=== PATIENT | male | born 1950 | race African-American/Black ===

== ENCOUNTER 2016-12-05 23:20 | Inpatient (IN) | payer MEDICARE, OTHER ==
--- NOTE | ~2016-12-05 | CT24 ---
[facility] A Service of [facility] & [facility] RADIOLOGY TEXT RESULTS PATIENT: Shoaib PERRY LOCATION: [facility] 469-01 : 51 UNIT #: [id number] AGE: [address]: Jakob Murphy MD SEX: M ORDER DR: [id number] [facility] [address] [place], [place] [address] [id number] I MR#: [id number] Acc #: [id number] NAME: SHOAIB PERRY : 1950 SEX: M STUDY DATE/TIME: 12/05/2016 23:45 [facility] RO[facility] 28933 STUDY DESCRIPTION: CT Angio Neck Stroke Attending Physician: Jakob Murphy M.D. Ordering Physician: Joe Galvez M.D. Primary Care Physician: Primary Care Physician No MEDICAL IMAGING REPORT This report is preliminary unless electronic signature is present EXAM CT scan of the head and neck with angiographic reconstructions INDICATION Left eye deviation with weakness and confusion. Unable to answer questions. The patient has slurred speech. The findings happened tonight. TECHNIQUE The patient was given 100 mL of Isovue 370 and spiral imaging was performed through the head and neck. 3-D reconstructions of the arterial structures were generated. NASCET criteria was utilized. This CT examination was performed with one or more of the following radiation dose reduction techniques: automatic exposure control, adjustment of mA and/or kV according to patient size, and iterative reconstruction. FINDINGS The lung apices are clear. The thyroid gland, submandibular glands and parotid glands are normal in appearance. There are no neck masses or adenopathy. The ventricles and subarachnoid spaces are normal. VASCULAR FINDINGS: The aortic arch is normal in size. The great vessels are all patent. The vertebral arteries both arise from the subclavian arteries and they unite to form the basilar artery. The right 1 is dominant. The right common carotid artery, carotid bifurcation and internal carotid artery are normal in appearance. The left common carotid artery, carotid bifurcation and internal carotid artery are normal in appearance. Both posterior cerebral arteries arise from the anterior circulation. The middle and anterior cerebral arteries are normal in appearance. The basilar artery terminates as the superior cerebellar artery. No aneurysms are identified. IMPRESSION Both posterior cerebral arteries arise from the anterior circulation. [facility] A Service of [facility] & [facility] RADIOLOGY TEXT RESULTS PATIENT: Shoaib PERRY LOCATION: [facility] 469-01 : 51 UNIT #: [id number] AGE: [address]: Jakob Murphy MD SEX: M ORDER DR: There are no aneurysms identified. No stenoses or blockages are noted. The study is otherwise normal. Dictated by... Abdifatah Warren M.D. THIS IS AN ELECTRONICALLY VERIFIED REPORT Abdifatah Warren M.D. at 12/06/2016 1:30 PM KENIA/be TD: 12/06/2016 08:06 JOB #: [id number] MEDICAL IMAGING REPORT Page 1 of 1 COPY
--- NOTE | ~2016-12-05 | CO ---
Unit #: [id number] #: [id number] Patient: Shoaib PERRY [id number] [address] [address] [id number] I MR#: [id number] NAME: SHOAIB PERRY ROOM: 469 Age: 66 Sex: M Admission Date: 12/06/2016 : 1950 Attending Physician: Valerie Rodriguez M.D. Consultation Date: 12/07/2016 CONSULTATION REPORT REVISED/ADDENDED REPORT ADDITIONAL ATTENDING PHYSICIAN Dr. Jakob Murphy. REASON FOR CONSULTATION Liver disease in a patient with hepatic encephalopathy. HISTORY OF PRESENT ILLNESS Mr. Perry is a 66-year-old gentleman, who although awake seems to be lethargic and somewhat confused. He is admitted because of mental confusion due to hepatic encephalopathy. The patient has longstanding history of hepatitis C and alcohol related cirrhosis of liver, and normally gets his care at [facility]. According to his daughter, most of the history was obtained from the chart. The patient apparently became confused and combative and thus was brought to the hospital. He has had similar history in the past. His admission ammonia level was 157 and he also had metabolic acidosis. There is no history of any overt GI bleed in the form of hematemesis, melena, or hematochezia. There is also no documentation of any increasing constipation. It is not clear whether the patient is compliant with his lactulose therapy. PAST MEDICAL HISTORY Significant for history of cirrhosis as a result of alcohol and hepatitis C, also history of intravenous drug use in the past, history of gastroesophageal reflux, and history of COPD. PAST SURGICAL HISTORY He has no previous surgeries. MEDICATIONS At home included pantoprazole, Aldactone, Corgard, lactulose, Lasix, and Flovent. ALLERGIES He has no known medication allergies. SOCIAL HISTORY He resides at home, lives with his daughter. It is not clear whether he is currently smoking or drinking. FAMILY HISTORY Unit #: [id number] #: [id number] Patient: Sohaib PERRY None available. REVIEW OF SYSTEMS Detailed review of organ systems is not available due to the patient's mental status. PHYSICAL EXAMINATION GENERAL: He appears awake and responds to verbal commands, but is quite lethargic. VITAL SIGNS: His pulse is 79 per minute and regular, respiratory rate is 16, blood pressure is 162/84. His temperature is 98.5. He weighs 136 pounds and we do not have any baseline weight to compare with. HEENT: He has mild pallor. There being no icterus, lymphadenopathy, or peripheral edema. CARDIOVASCULAR: Reveals normal heart sounds. No murmurs on auscultation. LUNGS: Reveal normal breath sounds. Good air entry. ABDOMEN: Soft and nontender. Liver and spleen are not palpable. Bowel sounds are normal. DIAGNOSTIC STUDIES LABORATORY RESULTS: Shows an INR of 1.3 JOB [id number] ADDENDUM DIAGNOSTIC STUDIES LABORATORY RESULTS: The patient's INR is 1.3. Platelet count is 74. BUN and creatinine are 24 and 1.5. His ammonia level is 150 yesterday and 170 today. The hemoglobin is 9.7, we do not have any baseline. The patient has metabolic acidosis with a CO2 of 19. Albumin is 2.4. CLINICAL IMPRESSION The patient with cirrhosis as a result of ethanol abuse and chronic hepatitis C, presenting with now hepatic encephalopathy acute versus chronic kidney injury, metabolic acidosis, malnutrition, thrombocytopenia all consequence of liver disease. A management plan includes aggressive treatment of hepatic encephalopathy with lactulose and Xifaxan, which has already been started and index endoscopy to look for evidence of esophageal varices or portal hypertensive gastropathy in the upper gastrointestinal tract. Thank you very much for asking me to see this pleasant gentleman. I appreciate the consult. Dictated by... Cayden Del Toro/danny TD: 12/07/2016 17:17 JOB #: [id number] [facility] Unit #: [id number] #: [id number] Patient: Shoaib PRERY CONSULTATION REPORT Page 1 of 1 X Tolu Lloyd MD CONSULTATION REPORT
--- NOTE | ~2016-12-05 | DS ---
Unit #: [id number] #: [id number] Patient: SHOAIB PERRY [id number] [address] [address] [id number] I MR#: [id number] NAME: SHOAIB PERRY ROOM: 469 Age: 66 Sex: M Admission Date: 12/06/2016 : 1950 Discharge Date: 12/09/2016 Attending Physician: Valerie Rodriguez M.D. Primary Care Physician: No Primary Care Physician DISCHARGE SUMMARY REASON FOR ADMISSION Mental status change, family unable to care for patient at home, fecal incontinence. HISTORY OF PRESENT ILLNESS The patient is a 66-year-old -Omani male with history of end-stage cirrhosis, seen and evaluated in the emergency room secondary to increased confusional episodes as well as combative behavior at home. He was evaluated. Initially, he had profound mental status changes. He was alert and oriented times zero. It was noted his creatinine was 1.8. His ammonia level was 157. His potassium was 5.4 and thus he was admitted for the same. Through hospital course, consultation was placed to Dr. Lloyd of gastroenterology services. Patient underwent upper GI endoscopy to evaluate for possible varices of the esophagus secondary to his prior history of cirrhosis. This did reveal gastritis changes but no acute varices were noted. Patient's creatinine at time of discharge today is 1.5 and likely his baseline is close to 1.5 to 1.8. He also carries chronic pancytopenia, likely secondary to his cirrhosis with a baseline hemoglobin of approximately 8.9. Baseline platelets between 60,000 to 80,000. His home medications were continued and do remain the same at time of discharge with the exception of Xifaxan which was added. Overall, his prognosis mcc is guarded. He will require rehab with possible transition to long-term care. FINAL DISCHARGE DIAGNOSES 1. Mental status change, likely secondary to hepatic encephalopathy. 2. Cirrhosis, evaluated as an outpatient by transplant team x2, not a transplant candidate. 3. Alcohol abuse history. 4. Prior and numerous hospital admissions secondary to recurrent ascites. 5. Xfzgtlta-uo-somkrs malnutrition. 6. Gnoximzq-no-bdjhyi protein malnutrition. 7. Chronic obstructive pulmonary disease. 8. Gastroesophageal reflux disease. 9. Hepatitis C. 10. Remote history of IV drug abuse. 11. Fecal incontinence. 12. Anxiety/behavioral issues, none observed here at [facility]. [place] #: [id number] #: [id number] [facility] DISCHARGE MEDICATIONS 1. Lactulose 20 g p.o. q.6 hours. 2. Flonase one to two squirts each nostril daily. 3. Xifaxan 550 mg p.o. b.i.d. 4. Nadolol 40 mg p.o. nightly. 5. Lasix 20 mg p.o. daily. 6. Aldactone 50 mg p.o. daily. 7. Protonix 40 mg p.o. daily. DISCHARGE CONDITION Stable. DISCHARGE DISPOSITION Rehab as recommended by PT and OT services. Dictated by... Cayden Huitron/cindy TD: 12/09/2016 12:55 JOB #: [id number] DISCHARGE SUMMARY Page 1 of 1 X Valerie Rodriguez MD X DISCHARGE SUMMARY
--- NOTE | ~2016-12-05 | OR ---
Unit #: [id number] #: [id number] Patient: Shoaib PERRY [id number] [facility]. [place], [place] [address] [id number] I MR#: [id number] NAME: SHOAIB PERRY ROOM: 469 Date of Procedure: 12/07/2016 Admission Date: 12/06/2016 Surgeon: Tolu Lloyd M.D. : 1950 Attending Physician: Valerie Rodriguez M.D. OPERATIVE REPORT JOB NOTE: CC: DR. JAKOB PRINCE. ADDITIONAL ATTENDING PHYSICIAN Dr. Jakob Prince. PREOPERATIVE DIAGNOSIS Hepatic encephalopathy in a patient with cirrhosis of liver. PROCEDURE PERFORMED Upper gastrointestinal endoscopy. POSTOPERATIVE DIAGNOSES 1. The patient had mild early straight esophageal varices in the mid esophagus, there being no stigmata of recent bleed. 2. Moderate amount of solid food residue retained in the stomach. 3. Rest of the examination up to third part of duodenum was normal. There were no changes of portal hypertensive gastropathy. RECOMMENDATIONS 1. The patient will be started on high-calorie high fat, high carb diet. Continue current dose of lactulose and make sure the patient is given the amount p.o. under supervision of the nurse to ensure that is compliant. 2. Repeat CBC, CMP, and ammonia level in the a.m. SEDATION USED Procedural sedation, a total of 3 mg of versed was used throughout the procedure. DESCRIPTION OF PROCEDURE Following detailed explanation of potential risks and complications of an upper endoscopy, namely perforation, bleeding, and complication related to sedation, the patient was brought to GI lab and laid in the left lateral decubitus position. Lubricated tip of the Olympus video upper endoscope was passed through the bite block into the proximal esophagus under direct vision. The entire esophageal mucosa was examined. The patient was noted to have early straight esophageal varices in the mid esophagus. There being no stigmata of recent bleed. The gastroesophageal junction was normal. The scope was then advanced into the gastric cavity and the latter was insufflated. Mucosa of the fundus, body, and antrum was examined and appeared normal except for presence of some solid food Unit #: [id number] #: [id number] Patient: Shoaib PERRY residue in the prepyloric antral area of the stomach. No changes of portal hypertensive gastropathy were seen. Pylorus was intubated with visualization of the normal duodenal bulb and second and third part of the duodenum. Upon withdrawal and retroflexion, incisura, cardia, and greater curve was examined and no additional findings were noted. The scope was then withdrawn in the distal esophagus. The entire esophageal mucosa was examined all the way up to pharynx. No additional findings were noted. The patient tolerated the procedure without any postprocedure complications. Dictated by... Cayden Del Toro/danny TD: 12/07/2016 12:38 JOB #: [id number] OPERATIVE REPORT Page 1 of 1 X Tolu Lloyd MD X PROCEDURE OPERATIVE NOTE
--- NOTE | ~2016-12-05 | HP ---
Unit #: [id number] #: [id number] Patient: Shoaib PERRY [id number] [address] [address] [id number] Néstor MR#: [id number] NAME: SHOAIB PERRY ROOM: 469 Age: 66 Sex: M Admission Date: 12/06/2016 : 1950 Attending Physician: Jakob Murphy M.D. Primary Care Physician: No Primary Care Physician HISTORY AND PHYSICAL REASON FOR ADMISSION Mental status change. HISTORY OF PRESENT ILLNESS Patient is a 66-year-old, -Mauritanian male who apparently was brought in by family members, mainly the patient's daughter, after they noted he had increased confusional episodes, combative behavior while at home and they became concerned for possibly underlying stroke and/or hepatic encephalopathy issues. While he was evaluated in the emergency room, he was noted to have an elevated ammonia level of 157. His laboratory studies showed a potassium of 5.4 and creatinine of 1.8, which likely represents his baseline. He was negative for alcohol, but his initial lactic acid level was also noted to be 1.9. He was subsequently admitted for the same. While I am evaluating currently on a med/surg floor, there are no family members who are present. I called the patient's daughter, Bharati Nunes, and reviewed the past several days to weeks in regards to his overall level of care. She states that he was recently admitted to [facility] for similar circumstance and has been evaluated twice as an outpatient by transplant team and found not to be an appropriate candidate secondary to poor compliance, prior history of IV drug abuse, hepatitis C, as well as ongoing alcohol abuse. Daughter also tells me that whenever she leaves the home to go to work, she finds the patient at home not taking his medications, sometimes without clothes as well as increasing confusion and combative behavior. She is unable to care for him and thus has brought him to the hospital off and on secondary to above. PAST MEDICAL HISTORY Hepatitis C, IV drug abuse, end stage cirrhosis, alcohol abuse, poor compliance, GERD, and I believe COPD per chart review. PAST SURGICAL HISTORY No known surgeries. ALLERGIES No known medication allergies. HOME MEDICATIONS 1. Flovent. 2. Lasix. Unit #: [id number] #: [id number] Patient: Shoaib PERRY 3. Lactulose. 4. Corgard. 5. Pantoprazole. 6. Aldactone. REVIEW OF SYSTEMS Please see HPI. Limited secondary to poor mental status at the present time, but reviewed with the patient's daughter. Please see above. SOCIAL HISTORY Patient resides at home with his daughter. Unknown if he continues to smoke or drink alcohol. I believe he probably does both. No illicit drug use per patient and his urine tox screen was negative. FAMILY HISTORY Reviewed and noncontributory and not pertinent. PHYSICAL EXAMINATION CURRENT SET OF VITALS: Temperature 97.2, pulse 86, respiratory rate 17, and blood pressure 132/82. GENERAL APPEARANCE: Patient is a pleasant, 66-year-old, -Mauritanian male sitting up in bed eating lung in no acute distress. HEENT: Head: Atraumatic and normocephalic. Ears: Tympanic membranes without any erythema or injection. NECK: Supple. CVS: S1 and S2 without murmur. RESPIRATORY: Coarse breath sounds are heard with prolonged expiration. GI/ABDOMEN: Mild distention noted, but no tenderness. LOWER EXTREMITIES: Right lower extremity has a covered area on lateral aspect. No calf tenderness. NEUROLOGIC: Patient A and O x0. PSYCHIATRIC: Patient demonstrates normal mood and affect. INITIAL IMPRESSION 1. Altered mental status. 2. Hepatic encephalopathy. 3. End stage cirrhosis. 4. Prior history of alcohol abuse. 5. Hepatitis C. 6. Chronic thrombocytopenia. 7. Poor nutritional status. 8. Right lower extremity chronic wound. 9. Acute on chronic kidney injury. I believe baseline creatinine is 1.8-2. 10. Chronic immobility syndrome. 11. Prior history of COPD per chart review. PLAN Admission, telemetry floor. CT head has already been performed and negative. CT angiogram has already been performed secondary to stroke protocol. That too is negative. Lactulose will be continued on a q.6-hour basis. Ammonia rechecked from this morning is currently at 64. We will continue lactulose as well as routine medications at the present time. Wound care evaluation. PT/OT evaluation. consulting services project manager to evaluate for possible rehab and/or long-term placement secondary to poor social situation at home and patient requiring increased 24/7 care with no support at home. Unit #: [id number] #: [id number] Patient: Shoaib PERRY Overall, the long-term prognosis of this patient is guarded at best. Daughter is well aware secondary to his liver conditions and associated comorbidities that his prognosis is guarded and if he does not adhere to appropriate regimen hospice services may be considered. She states that she wishes for him to have a long-term placement secondary to poor medication compliance in the past. We will discuss this with care management as well as through hospital course. Dictated by Cayden Huitron/duran TD: 12/06/2016 13:50 JOB #: [id number] HISTORY AND PHYSICAL Page 1 of 1 X Valerie Rodriguez MD X HISTORY AND PHYSICAL
--- NOTE | ~2016-12-05 | EKG ---
PATIENT: Iirna PERRY UNIT #: [id number] Ventricular Rate: 100 BPM Atrial Rate: 100 BPM P-R Interval: 142 ms QRS Duration: 68 ms Q-T Interval: 378 ms QTC Calculation(Bezet): 487 ms P [place]: 40 degrees Calculated R [place]: 18 degrees Calculated T [place]: 69 degrees Diagnosis Line: Normal sinus rhythm Diagnosis Line: Possible Left atrial enlargement Diagnosis Line: Septal infarct , age undetermined Diagnosis Line: Poor data quality Diagnosis Line: Abnormal ECG Diagnosis Line: No previous ECGs available Diagnosis Line: Confirmed by PARUL READ MD ([id number]) on 12/07/2016 Diagnosis Line: 4:32:46 PM INTERPRETING MD: RORO CHAPIN
--- NOTE | ~2016-12-05 | CT72 ---
[facility] A Service of [facility] RADIOLOGY TEXT RESULTS PATIENT: Shoaib PERRY LOCATION: [facility] : 51 UNIT #: [id number] AGE: [address]: Jakob Murphy MD SEX: M ORDER DR: [id number] [facility] [address] [place], [place] [address] [id number] I MR#: [id number] Acc #: [id number] NAME: SHOAIB PERRY : 1950 SEX: M STUDY DATE/TIME: 12/05/2016 23:32 UNIT: [facility] ROOM: 29461 STUDY DESCRIPTION: CT Head Wo Contrast Stroke Attending Physician: Jakob Murphy M.D. Ordering Physician: Joe Galvez M.D. Primary Care Physician: Primary Care Physician No MEDICAL IMAGING REPORT This report is preliminary unless electronic signature is present EXAM CT scan of the brain without contrast INDICATION Left eye deviated with weakness, confusion and unable to answer questions. Symptoms are acute onset. FINDINGS Axial noncontrast images were obtained from the skull base to the vertex. This CT examination was performed with one or more of the following radiation dose reduction techniques: automatic exposure control, adjustment of mA and/or kV according to patient size, and iterative reconstruction. Ventricular size and configuration are normal. There is no evidence of acute infarct or hemorrhage. There are no extra-axial fluid collections. No mass lesion or mass effect is seen. There are no skull fractures. IMPRESSION Normal noncontrast head CT. The very bottom of the skull base is not included. Dictated by... Abdifatah Warren M.D. THIS IS AN ELECTRONICALLY VERIFIED REPORT Abdifatah Warren M.D. at 12/06/2016 1:31 PM KENIA/be TD: 12/06/2016 06:56 JOB #: [id number] [facility] A Service of [facility] RADIOLOGY TEXT RESULTS PATIENT: Shoaib PERRY LOCATION: [facility] : 51 UNIT #: [id number] AGE: [address]: Jakob Murphy MD SEX: M ORDER DR: MEDICAL IMAGING REPORT Page 1 of 1 COPY
--- NOTE | ~2016-12-05 | CR72 ---
[facility] A Service of [facility] & [facility] RADIOLOGY TEXT RESULTS PATIENT: Shoaib PERRY LOCATION: [facility] : 51 UNIT #: [id number] AGE: [address]: Jakob Murphy MD SEX: M ORDER DR: [id number] [facility] [address] [place], [place] [address] [id number] I MR#: [id number] Acc #: [id number] NAME: SHOAIB PERRY : 1950 SEX: M STUDY DATE/TIME: 12/05/2016 23:51 UNIT: [facility] ROOM: 29960 STUDY DESCRIPTION: CR Chest Single View Portable Attending Physician: Jakob Murphy M.D. Ordering Physician: Joe Galvez M.D. Primary Care Physician: Primary Care Physician No MEDICAL IMAGING REPORT This report is preliminary unless electronic signature is present EXAM Portable chest INDICATION Altered mental status. Shortness of air and weakness tonight. COMPARISON None. FINDINGS A portable view of the chest was obtained. The heart size and vascularity are normal. The lungs are clear. The bones are unremarkable. IMPRESSION No active disease. Dictated by... Abdifatah Warren M.D. THIS IS AN ELECTRONICALLY VERIFIED REPORT Abdifatah Warren M.D. at 12/06/2016 1:30 PM KENIA/be TD: 12/06/2016 08:02 JOB #: [id number] MEDICAL IMAGING REPORT Page 1 of 1 COPY
--- NOTE | ~2016-12-05 | CT18 ---
[facility] A Service of [facility] RADIOLOGY TEXT RESULTS PATIENT: Shoabi PERRY LOCATION: [facility]9- : 51 UNIT #: [id number] AGE: [address]: Jakob Murphy MD SEX: M ORDER DR: [id number] [address] [address] [id number] I MR#: [id number] Acc #: [id number] NAME: SHOAIB PERRY : 1950 SEX: M STUDY DATE/TIME: 12/05/2016 23:45 UNIT: [facility] ROOM: [facility] STUDY DESCRIPTION: CT Angio Head Stroke Attending Physician: Jakob Murphy M.D. Ordering Physician: Joe Galvez M.D. Primary Care Physician: Primary Care Physician No MEDICAL IMAGING REPORT This report is preliminary unless electronic signature is present EXAM CT angiogram of the head FINDINGS Please see CT angiogram of the neck for results. Dictated by... Abdifatah Warren M.D. THIS IS AN ELECTRONICALLY VERIFIED REPORT Abdifatah Warren M.D. at 12/07/2016 2:48 AM KENIA/be TD: 12/06/2016 08:07 JOB #: [id number] MEDICAL IMAGING REPORT Page 1 of 1 COPY
[2016-12-05 23:58] LABS: BASOPHIL% 0.5 % (0-2.5); EOSINOPHIL# 0.1 X10e3 (0-0.7); HEMATOCRIT 28.2 % (38.0-50.0); HEMOGLOBIN 9.7 gm/dL (13.0-16.0); LYMPHOCYTE# 1.4 X10e3 (1.0-3.5); LYMPHOCYTE% 21.4 % (17.0-45.0); MEAN CELL VOLUME 97.8 FL (83-96); MEAN CORPUSCULAR HEMOGLOBIN 33.5 PG (28-34); MEAN CORPUSCULAR HGB CONC 34.3 g/dL (30-36); MEAN PLATELET VOLUME 7.3 FL (6.5-11.5); MONOCYTE# 0.6 X10e3 (0-1.0); MONOCYTE% 9.4 % (3.0-12.0); NEUTROPHIL# 4.5 X10e3 (1.5-7.1); NEUTROPHIL% 66.7 % (40-75); RED BLOOD COUNT 2.88 X10e (3.90-5.60); RED CELL DISTRIBUTION WIDTH 17.1 % (11.0-15.5); WHITE BLOOD COUNT 6.8 X10e3 (4.0-10.5)
[2016-12-06 00:12] LABS: DIFF IND YES; INR 1.3; PARTIAL THROMBOPLASTIN TIME 42.8 SECONDS (23.5-31.3); PLATELET COUNT 74 X10e3 (140-420); PROTHROMBIN TIME (PATIENT) 13.6 SECONDS (9.6-11.5)
[2016-12-06 00:16] LABS: PLATELET ESTIMATE DECREASED (NORMAL)
[2016-12-06 00:17] LABS: ANISOCYTOSIS SL; ROULEAUX SLIGHT
[2016-12-06 00:22] LABS: ALBUMIN SERUM 2.7 g/dL (3.5-5.0); ALCOHOL BLOOD <5 mg/dL (0); ALKALINE PHOSPHATASE 85 U/L (32-92); ALT (SGPT) 37 U/L (10-40); AST (SGOT) 48 U/L (10-42); BILIRUBIN,TOTAL 2.5 mg/dL (0.2-2.0); BLOOD UREA NITROGEN 26 mg/dL (9-23); BUN/CREATININE RATIO 14.44; CALCIUM SERUM 8.1 mg/dL (8.4-10.2); CARBON DIOXIDE 20 mmol/L (22-31); CHLORIDE 110 mmol/L (100-111); CREATININE SERUM 1.8 mg/dL (0.6-1.4); GLOM FILT RATE Estimated 44.8 mL/min (>60); GLUCOSE FASTING 110 mg/dL (70-110); POTASSIUM 5.4 mmol/L (3.5-5.1); PROTEIN TOTAL SERUM 7.4 g/dL (6.0-8.3); SODIUM 134 mmol/L (135-145)
[2016-12-06 01:36] LABS: URINE SOURCE CATH
[2016-12-06 01:41] LABS: URINE APPEARANCE CLEAR; URINE BILIRUBIN NEG (NEG); URINE BLOOD NEG (NEG); URINE COLOR YELLOW; URINE GLUCOSE NEG (NEG); URINE KETONE NEG (NEG); URINE LEUKOCYTE ESTERASE NEG (NEG); URINE NITRATE NEG (NEG); URINE PROTEIN NEG (NEG); URINE SPECIFIC GRAVITY 1.025 (1.003-1.035)
[2016-12-06 01:45] LABS: CULTURE INDICATED? NO
[2016-12-06 01:51] LABS: AMPHETAMINE NEG (NEG); BARBITURATES NEG (NEG); BENZODIAZEPINES NEG (NEG); COCAINE NEG (NEG); MARIJUANA NEG (NEG); OPIATES NEG (NEG); TRICYCLIC ANTIDEPRESSANTS NEG (NEG); U METHADONE NEG (NEG)
[2016-12-06 02:40] LABS: %MB 1.1 % (0.0-4.0); MB 1.3 ng/ml
[2016-12-06] MEDS ORDERED: FLOVENT DISKUS50 MCG (06:16)
[2016-12-06] MEDS ORDERED: LASIX20 MG PO (06:16)
[2016-12-06] MEDS ORDERED: LACTULOSE10 GM/15 M PO (06:17)
[2016-12-06] MEDS ORDERED: CORGARD40 MG PO (06:17)
[2016-12-06] MEDS ORDERED: PANTOPRAZOLE SO40 MG PO (06:18)
[2016-12-06] MEDS ORDERED: SPIRONOLACTONE50 MG PO (06:18)
[2016-12-06 09:19] LABS: BUN/CREATININE RATIO 13.15; CREATININE SERUM 1.9 mg/dL (0.6-1.4); GLOM FILT RATE Estimated 41.9 mL/min (>60); POTASSIUM 4.3 mmol/L (3.5-5.1)
[2016-12-07 02:24] LABS: URINE APPEARANCE CLEAR; URINE BILIRUBIN NEG (NEG); URINE BLOOD TRACE (NEG); URINE COLOR YELLOW; URINE GLUCOSE NEG (NEG); URINE KETONE NEG (NEG); URINE LEUKOCYTE ESTERASE TRACE (NEG); URINE NITRATE NEG (NEG); URINE PH 7.5 (5-8); URINE PROTEIN NEG (NEG); URINE SPECIFIC GRAVITY 1.018 (1.003-1.035)
[2016-12-07 02:26] LABS: U HYALINE CASTS AUWI 0-2 /[LPF]; URINE BACTERIA AUWI NEG (NEGATIVE); URINE SQUAMOUS EPITHELIAL CELL NONE SEEN /[HPF]; UWBCS1 AUWI 0-2 (0-5)
[2016-12-07 03:41] LABS: INR 1.3; PROTHROMBIN TIME (PATIENT) 14.1 SECONDS (9.6-11.5)
[2016-12-07 03:45] LABS: ALBUMIN SERUM 2.4 g/dL (3.5-5.0); CALCIUM SERUM 8.3 mg/dL (8.4-10.2); CREATININE SERUM 1.5 mg/dL (0.6-1.4); GLOM FILT RATE Estimated 55.8 mL/min (>60); POTASSIUM 4.8 mmol/L (3.5-5.1); PROTEIN TOTAL SERUM 6.7 g/dL (6.0-8.3)
[2016-12-08 04:10] LABS: BASOPHIL% 0.5 % (0-2.5); EOSINOPHIL# 0.1 X10e3 (0-0.7); EOSINOPHIL% 2.8 % (0.0-7.0); HEMOGLOBIN 9.9 gm/dL (13.0-16.0); LYMPHOCYTE# 1.1 X10e3 (1.0-3.5); LYMPHOCYTE% 25.3 % (17.0-45.0); MEAN CELL VOLUME 97.7 FL (83-96); MEAN CORPUSCULAR HEMOGLOBIN 33.3 PG (28-34); MEAN CORPUSCULAR HGB CONC 34.1 g/dL (30-36); MEAN PLATELET VOLUME 6.6 FL (6.5-11.5); MONOCYTE# 0.4 X10e3 (0-1.0); MONOCYTE% 8.7 % (3.0-12.0); NEUTROPHIL# 2.8 X10e3 (1.5-7.1); NEUTROPHIL% 62.7 % (40-75); PLATELET COUNT 71 X10e3 (140-420); RED BLOOD COUNT 2.97 X10e (3.90-5.60); RED CELL DISTRIBUTION WIDTH 16.8 % (11.0-15.5); WHITE BLOOD COUNT 4.5 X10e3 (4.0-10.5)
[2016-12-08 04:11] LABS: DIFF IND NO
[2016-12-08 04:15] LABS: INR 1.2; PROTHROMBIN TIME (PATIENT) 13.2 SECONDS (9.6-11.5)
[2016-12-08 04:27] LABS: ALBUMIN SERUM 2.6 g/dL (3.5-5.0); BILIRUBIN,TOTAL 2.3 mg/dL (0.2-2.0); BUN/CREATININE RATIO 11.66; CALCIUM SERUM 8.7 mg/dL (8.4-10.2); CREATININE SERUM 1.8 mg/dL (0.6-1.4); GLOM FILT RATE Estimated 44.8 mL/min (>60); MAGNESIUM 1.8 mg/dL (1.6-3.0); POTASSIUM 4.8 mmol/L (3.5-5.1); PROTEIN TOTAL SERUM 7.6 g/dL (6.0-8.3)
[2016-12-08 12:56] LABS: POC - GFR >60.0 mL/min (>60)
[2016-12-09 03:21] LABS: BASOPHIL% 0.6 % (0-2.5); EOSINOPHIL# 0.2 X10e3 (0-0.7); EOSINOPHIL% 3.4 % (0.0-7.0); HEMATOCRIT 25.7 % (38.0-50.0); HEMOGLOBIN 8.9 gm/dL (13.0-16.0); LYMPHOCYTE# 1.2 X10e3 (1.0-3.5); LYMPHOCYTE% 21.7 % (17.0-45.0); MEAN CELL VOLUME 97.3 FL (83-96); MEAN CORPUSCULAR HEMOGLOBIN 33.7 PG (28-34); MEAN CORPUSCULAR HGB CONC 34.7 g/dL (30-36); MEAN PLATELET VOLUME 6.9 FL (6.5-11.5); MONOCYTE# 0.8 X10e3 (0-1.0); MONOCYTE% 14.9 % (3.0-12.0); NEUTROPHIL# 3.2 X10e3 (1.5-7.1); NEUTROPHIL% 59.4 % (40-75); PLATELET COUNT 74 X10e3 (140-420); RED BLOOD COUNT 2.64 X10e (3.90-5.60); RED CELL DISTRIBUTION WIDTH 16.4 % (11.0-15.5); WHITE BLOOD COUNT 5.3 X10e3 (4.0-10.5)
[2016-12-09 03:22] LABS: DIFF IND NO
[2016-12-09 03:48] LABS: ALBUMIN SERUM 2.3 g/dL (3.5-5.0); BILIRUBIN,TOTAL 1.6 mg/dL (0.2-2.0); CALCIUM SERUM 8.1 mg/dL (8.4-10.2); CREATININE SERUM 1.5 mg/dL (0.6-1.4); GLOM FILT RATE Estimated 55.8 mL/min (>60); MAGNESIUM 1.7 mg/dL (1.6-3.0); POTASSIUM 4.4 mmol/L (3.5-5.1)
== END 2016-12-09 19:05 | DRG 432 ==
LOC: CED 23:20 → CEDOF 12-06 02:07 → CED 12-06 02:07 → C4C 12-06 02:07
PROVIDERS: Emergency Medicine; Family Medicine; Internal Medicine
PROC: B32GYZZ Computerized Tomography (CT Scan) of Bilateral Vertebral Arteries using Other Contrast (ICD-10-PCS; principal; 2016-12-05)
PROC: 0DJ08ZZ Inspection of Upper Intestinal Tract, Via Natural or Artificial Opening Endoscopic (ICD-10-PCS; 2016-12-07)
DX: K70.30 Alcoholic cirrhosis of liver without ascites (principal); E43 Unspecified severe protein-calorie malnutrition; N17.9 Acute kidney failure, unspecified; G92 Toxic encephalopathy; D61.818 Other pancytopenia; E87.2 Acidosis; T18.2XXA Foreign body in stomach, initial encounter; I85.00 Esophageal varices without bleeding; N18.4 Chronic kidney disease, stage 4 (severe); D69.59 Other secondary thrombocytopenia; F10.20 Alcohol dependence, uncomplicated; K72.90 Hepatic failure, unspecified without coma; I12.9 Hypertensive chronic kidney disease with stage 1 through stage 4 chronic kidney disease, or unspecified chronic kidney disease; K21.9 Gastro-esophageal reflux disease without esophagitis; B19.20 Unspecified viral hepatitis C without hepatic coma; R15.9 Full incontinence of feces
CPT/HCPCS: 51702; 70450; 70496; 70498; 71010; 80048; 80053; 80307; 81003; 82140; 82550; 82553; 82565; 82607; 83605; 83735; 84443; 84484; 85025; 85610; 85730; 87040; 87086; 93005; 96365; 96375; 97116; 97163; 97166; 97535; 99291; C9254; G0480; G8978-GP; G8979-GP; G8987-GO; G8988-GO; J2250; J3475; Q9967